=== PATIENT | female | born 1980 | race Caucasian/White ===

== ENCOUNTER 2022-12-02 11:05 | Emergency (ER) | payer SELFPAY ==
[~2022-12-02] VITALS: Ht 152.4 cm; Wt 92.0 kg
[2022-12-02] MEDS ORDERED: ACETAMINOPHEN 325MG TABLET PO ONE (11:45)
[2022-12-02] MEDS ORDERED: METHOCARBAMOL 500MG TABLET PO ONE (11:45)
[2022-12-02] MEDS ORDERED: METH-653 MT (13:58)
[2022-12-02] MEDS ORDERED: IBUP-2029 MT (13:58)
[2022-12-02 13:59] VITALS: BP 179/108
== END 2022-12-02 14:12 | disposition home or self-care (01) ==
LOC: ER 11:05
DX: S33.5XXA Sprain of ligaments of lumbar spine, initial encounter (principal); S13.4XXA Sprain of ligaments of cervical spine, initial encounter; I10 Essential (primary) hypertension; V49.9XXA Car occupant (driver) (passenger) injured in unspecified traffic accident, initial encounter; Y93.89 Activity, other specified; Y92.89 Other specified places as the place of occurrence of the external cause; Y99.8 Other external cause status
CPT/HCPCS: 81025; 99284